=== PATIENT | male | born 1990 | race Caucasian/White ===

== ENCOUNTER 2019-07-14 08:43 | Emergency (ER) | payer SELFPAY ==
[2019-07-14] MEDS ORDERED: Bupivacaine 0.5% 10 ML VIAL ONE ×3 (09:37→10:39)
[2019-07-14] MEDS ORDERED: Bupivacaine 0.25% 10 ML VIAL ONE (09:37)
[2019-07-14] MEDS ORDERED: HYDROcodone/Acetaminophen 5/325 mg Tablet ONE (12:09)
--- NOTE | 2019-07-14 12:09 | CON ---
DATE OF CONSULTATION: 07/14/2019 REQUESTING PHYSICIAN: Karl Huerta DO CONSULTING PHYSICIAN: Alcides Forman MD REASON FOR CONSULTATION: Right ring finger P2 segment traumatic amputation and small laceration and index and long webspace of same hand. BRIEF CLINICAL HISTORY: Imtiaz is a 28-year-old left-handed male, who was brought to [facility] via EMS to transfer after he was injured at work, operating a lathe. The patient unfortunately went to change mechanisms and his right hand became caught in the lathe itself, resulting in a traumatic amputation of the right ring finger at the distal aspect of the P2 segment. He also sustained a laceration of the webspace between the index and long finger on the volar side. He was seen at [facility] and transferred via EMS to [facility]. Our service has been consulted for definitive management of this problem and revision amputation acutely. PAST MEDICAL HISTORY: Negative. PAST SURGICAL HISTORY: Left clavicle open reduction and internal fixation. MEDICATIONS: None. ALLERGIES: NO KNOWN DRUG ALLERGIES. HE DENIES ANY CONTACT ALLERGY. SOCIAL HISTORY: He is a full-time employee, not . He denies any ethanol, tobacco, or illicit drug use. PHYSICAL EXAMINATION: VITAL SIGNS: Stable. See nurses' notes. HEENT: Head; normocephalic, atraumatic. Pupils are equal, round, and reactive to light. Oropharynx is benign. CHEST: Clear to auscultation. HEART: Regular rate and rhythm. ABDOMEN: Soft, benign. EXTREMITIES: No clubbing, cyanosis, or edema. Visual inspection of the right upper extremity demonstrates him to have an oblique laceration with very little tissue remaining except at the distal aspect of the P2 segment. The DIP joint has been amputated itself. Fingernail tacks, but again there is no capillary refill and the volar digital vessels are identified in the pulp as well as nerves just from gross examination. Bone has a clean margin as well. There is very little comminution noted both clinically as well as radiographically. There is also a laceration noted in the webspace, which is vertical in between the first and long finger webspace. There is little bit of bleeding coming from it, but no active high-pressure bleeding is noted. IMPRESSION: 1. Traumatic right ring finger distal P2 segment amputation. 2. Right hand volar aspect interdigital webspace complex laceration between first and ring finger. PLAN: 1. The risks, benefits, options, alternatives, and rationale for proceeding with a bedside revision amputation under digital and local field anesthesia has been explained in great detail with the patient, he is ready to proceed. All questions were answered. No guarantee of outcome stated or implied plan. 2. Primary closure of his volar interdigital webspace laceration will be carried out at the same time. 3. Ancef 2 g now. 4. Please see orders. Please see operative note in separate dictation. Job ID: [id number]
[2019-07-14] MEDS ORDERED: Ondansetron ODT 4 MG TAB ONE (12:10)
--- NOTE | 2019-07-14 12:24 | OP ---
DATE OF PROCEDURE: 07/14/2019 PREPROCEDURAL DIAGNOSIS: Traumatic right ring finger distal P2 segment open fracture/amputation with volar interdigital webspace hand laceration. POSTPROCEDURAL DIAGNOSIS: Traumatic right ring finger distal P2 segment open fracture/amputation with volar interdigital webspace hand laceration. PROCEDURES PERFORMED: 1. Bedside revision amputation of right ring finger P2 segment. 2. Primary closure of right interdigital webspace in the index and long finger webspace on the right hand. ANESTHESIA: Local digital block with 0.5% Marcaine without epinephrine. PROCEDURE IN DETAIL: After informed consent was obtained, the patient was then positioned appropriately in supine position. The right upper extremity was then prepped and draped in usual sterile fashion. Digital block was placed with 0.5% Marcaine using a digital approach, both volarly and dorsally at the ring finger on the right. Then, we placed a field block at the interdigital webspace laceration on the volar aspect of the palm with good local skin wheal anesthesia observed. I use total of 60 mL of local anesthetic without epinephrine. Once adequate anesthesia was obtained, a secondary prep was then established with a good field. Copious irrigation with normal saline was carried out on the lavage technique on the right finger, which was then cleaned and inspected for debris. There was none to be found. Also, the laceration was explored fully at its depth. There was no debris found. This was also confirmed with x-ray and no debris to be seen. No foreign bodies noted on radiographs. Once adequate inspection, irrigation was carried out. Primary closure of the laceration was performed with interrupted 3-0 nylons. Attention was then turned to the ring digit on the right. The stumps were thoroughly inspected. Questionable skin coverage was debrided sharply with #15 blade. Then, removed all comminuted pieces with the blade. Sharp dissection was carried down to the bone. I did a circumferential skeletonization of the distal P2 segment sharply. Bleeding was controlled with the local tourniquet, which was over the digit itself. A double-action rongeur was then used to remove approximately 4 mm of bone to the proximal end. This was then smoothed off with a rongeur. I had good skin and tissue coverage. No tendons were involved. These were also sharply debrided back to the base of the P2 segment. The wound was then copiously irrigated with normal saline again and washout all debris and primary closure was accomplished with a trauma stitch using a 2-0 nylon and then this was also augmented with 3-0 interrupted trauma stitches using a 3-0 nylon. Dog-ear was encountered. This was sharply debrided, excised down and oversewn with a 3-0 nylon. In all, there was 7 interrupted stitches in the distal aspect of the wound, which was an oblique pattern. Sterile dressing was applied. Procedure was terminated without any complication. The patient will be discharged with Tylenol No. 4, #50 one or two q.4 to 6 as needed for pain as well as Keflex 500, #40 one p.o. q.8 hours. We will see him back in clinic in 6 to 7 days and I have given instructions to keep the dressing dry and the extremity elevated. We will be happy to see the patient on an as-needed basis between now and his next scheduled appointment in 6 to 7 days. CONDITION ON DISCHARGE: Stable. PROGNOSIS: Good. Job ID: [id number]
== END 2019-07-14 12:43 | disposition home or self-care (01) ==
LOC: ERS 08:43
DX: S68.124A Partial traumatic metacarpophalangeal amputation of right ring finger, initial encounter (principal); W31.1XXA Contact with metalworking machines, initial encounter
CPT/HCPCS: 26951; 96365; G0390; J0690; J3490; Q0162; S0020